=== PATIENT | male | born 1960 | race Hispanic/Latino ===

== ENCOUNTER 2018-02-24 14:40 | Inpatient (IN) | payer MEDICARE ==
[~2018-02-24] VITALS: Ht 170.2 cm; Wt 66.5 kg
[2018-02-24 16:04] LABS: BASOPHILS % (AUTO) 0.7 % (0.0-5.0); EOSINOPHILS % (AUTO) 0.8 % (0.0-8.0); HEMATOCRIT 37.1 % (42-54); LYMPHOCYTES % (AUTO) 16.1 % (21.0-51.0); MEAN CORPUSCULAR HEMOGLOBIN 33.7 pg (27.0-33.0); MEAN CORPUSCULAR HGB CONC 33.6 g/dL (32.0-36.0); MEAN CORPUSCULAR VOLUME 100.3 fL (79-99); NEUTROPHILS % (AUTO) 68.4 % (40.0-77.0); NUCLEATED RED BLOOD CELLS 0.3 % (0.0-0.19); PLATELET COUNT (AUTO) 94 K/uL (130-400); RED BLOOD CELL COUNT(AUTO) 3.69 MIL/uL (4.50-6.20); RED CELL DISTRIBUTION WIDTH 13.1 % (11.0-15.5); WHITE BLOOD COUNT (AUTO) 5.2 K/uL (4.8-10.8)
[2018-02-24 16:16] LABS: CREATININE 1.4 mg/dL (0.5-1.5); POTASSIUM 3.8 mmol/L (3.5-5.1)
[2018-02-24 16:22] LABS: ALBUMIN 3.1 g/dL (3.5-5.0); BILIRUBIN,TOTAL 0.3 mg/dL (0.2-1.0); TOTAL PROTEIN, SERUM 7.6 g/dL (6.0-8.3)
[2018-02-24] MEDS ORDERED: AZITHROMYCIN 500MG+NS 250ML 250 ML IV ONE (17:05)
[2018-02-24] MEDS ORDERED: CEFTRIAXONE SODIUM 1 GM ONE (17:05)
[2018-02-24] MEDS ORDERED: OSELTAMIVIR PHOSPHATE 75 MG CAP ONE (17:06)
[2018-02-24] MEDS ORDERED: ALBUTEROL SULFATE 0.083% 2.5 MG/3 ML INH IH ONE (17:29)
[2018-02-24] MEDS: SODIUM CHLORIDE 0.9% 1000ML 1,000 ML IV SCH ×2 (18:07→19:25)
[2018-02-24] MEDS ORDERED: ACETAMINOPHEN 325 MG TAB PO PRN ×2 (18:15)
[2018-02-24] MEDS ORDERED: ONDANSETRON HCL 4 MG/2 ML VIAL IV PRN (18:15)
[2018-02-24] MEDS ORDERED: HYDRALAZINE HCL 20 MG/ML VIAL IV PRN (18:15)
[2018-02-24] MEDS ORDERED: LACTULOSE 20 GM/30 ML UDCUP PO PRN (18:15)
[2018-02-24 20:12] LABS: APPEARANCE,URINE Clear (CLEAR); BILIRUBIN,URINE Negative (NEGATIVE); COLOR,URINE Yellow (YELLOW); GLUCOSE, URINE (UA) Negative (NEGATIVE); KETONES,URINE Negative (NEGATIVE); LEUKOCYTE ESTERASE ,URINE Negative (NEGATIVE); NITRATE,URINE Negative (NEGATIVE); OCCULT BLOOD,URINE Negative (NEGATIVE); PROTEIN,URINE Negative (NEGATIVE); UROBILINOGEN,URINE 0.2 mg/dL (0.2-1.0)
[2018-02-24] MEDS: OSELTAMIVIR PHOSPHATE 75 MG CAP PO SCH (21:00)
[2018-02-24] MEDS ORDERED: ALBUTEROL SULFATE 0.083% 2.5 MG/3 ML INH IH SCH (22:00)
[2018-02-24] MEDS ORDERED: GUAIFENESIN-DM 200/20 MG 10 ML ONE (22:18)
[2018-02-24] MEDS: IPRATROPIUM/ALBUTEROL SULFATE 3 ML SOLUTION IH SCH (23:53)
[2018-02-25] VITALS: BP 162/85
[2018-02-25] MEDS ORDERED: OXYC-43 PO (00:25)
[2018-02-25] MEDS ORDERED: PREG100C PO (00:25)
[2018-02-25] MEDS: FAMOTIDINE/PF 20 MG/2 ML VIAL IV SCH ×2 (00:26→09:52)
[2018-02-25] MEDS: ACETAMINOPHEN 325 MG TAB PO PRN ×2 (00:55→06:50)
[2018-02-25] MEDS ORDERED: METO-408 PO (01:18)
[2018-02-25] MEDS ORDERED: ALPR0.5T8 PO (01:18)
[2018-02-25] MEDS ORDERED: ANDROGEL PUMP (01:18)
[2018-02-25] MEDS ORDERED: MUPI15C TP (01:18)
[2018-02-25] MEDS ORDERED: AMPH30CA PO (01:18)
[2018-02-25] MEDS ORDERED: [UNRECOGNIZED DRUG - CODE] TP (01:18)
[2018-02-25] MEDS ORDERED: TRAZ-185 PO (01:18)
[2018-02-25] MEDS ORDERED: DULO30CA2 PO (01:18)
[2018-02-25] MEDS ORDERED: FURO40TA5 PO (01:18)
[2018-02-25] MEDS ORDERED: ELVI1TAB3 PO (01:18)
--- NOTE | 2018-02-25 01:21 | NUR ---
FULL CODE Pt signed a DNr form in [place],he said he changed his mind and wants to be a full code.
--- NOTE | 2018-02-25 01:22 | NUR ---
HOME MEDS Pt did not bring home med except bottle of Lyrica and percocet. He sindhu a list of medication list from Md office.Medication entered on cpoe.
[2018-02-25 04:00] VITALS: BP 125/75
[2018-02-25] MEDS: SODIUM CHLORIDE 0.9% 1000ML 1,000 ML IV SCH ×2 (04:07→04:10)
[2018-02-25] MEDS: GUAIFENESIN-DM 200/20 MG 10 ML PO PRN ×4 (04:25→22:55)
--- NOTE | 2018-02-25 04:51 | NUR ---
SPUTUM/RESP PCR Sputum and resp PCr sample sent to lab.
[2018-02-25] MEDS: IPRATROPIUM/ALBUTEROL SULFATE 3 ML SOLUTION IH SCH ×3 (06:06→19:08)
[2018-02-25 07:30] VITALS: BP 112/73
[2018-02-25] MEDS ORDERED: PNEUMOCOCCAL VACCINE POLYVALENT 0.5 ML/VIAL [PPV] IM ONE ×2 (09:00)
--- NOTE | 2018-02-25 09:00 | NUR ---
PNEUMO. VACCINE TAKEN LESS THAN 5 YRS. AGO. NOT SURE ON FLU FOR TIS YEAR.
--- NOTE | 2018-02-25 09:00 | NUR ---
ANTI VIRAL MEDS. NOT AVAIL. PROVIDER TO BRING IN, ALL OTHER MEDICATIONS RECONCILED.
[2018-02-25] MEDS: OSELTAMIVIR PHOSPHATE 75 MG CAP PO SCH ×2 (09:52→20:50)
[2018-02-25] MEDS: ENOXAPARIN SODIUM 40 MG/0.4 ML SYRINGE SQ SCH (09:53)
[2018-02-25 11:00] VITALS: BP 147/97
--- NOTE | 2018-02-25 12:41 | NUR ---
DCP CM met with pt discussed dc plans. Pt is independent prior to admission, lives at home alone, sister Abigail Lorenzo lives close by. Denies any equipments/services. Pt feels safe to go back home, still drives, sister able to assist w/transportation and needs as necessary. Dc plan to home once stable. CM to cont to follow up. Addendum: 02/25/18 at 1243 by LOVELY MARIN LVN CM Amended: Links added.
[2018-02-25] MEDS: BENZONATATE 100 MG CAPSULE PO SCH ×2 (12:49→20:48)
[2018-02-25] MEDS: PERCOCET PO SCH ×2 (14:00→20:57)
[2018-02-25] MEDS: TRAZODONE HCL 50 MG TAB PO SCH ×2 (14:36→20:49)
[2018-02-25] MEDS: PREGABALIN 100 MG CAPSULE PO SCH ×2 (14:36→20:49)
[2018-02-25] MEDS: METHYLPREDNISOLONE SOD SUCC 40MG/ML 1ML IVP SCH (15:03)
[2018-02-25 16:00] VITALS: BP 125/76
--- NOTE | 2018-02-25 16:35 | NUR ---
Nutrition intervention: Nutrition notification as trigger. Pt admitted for CAP RLL/hypoxia. Pt reports poor po intake d/t decreased appetite d/t every thing he is going through emotionally and recently losing his partner in October. Pt reports a 9 lb unintentional weight loss in the past 3 months since partner past away. Pt's Nurse and RD have encouraged pt to take care of his own health first to get better and be able to handle current emotional situation. Recommendations: Continue current diet therapy. Provided nutrition supplement once daily for added caloric and protein intake. Addendum: 02/25/18 at [address] RD Amended: Links added.
--- NOTE | 2018-02-25 17:00 | NUR ---
DR. CAMPBELL IN TO SEE PT.
[2018-02-25] MEDS: CEFTRIAXONE SODIUM 1 GM IV SCH (17:08)
[2018-02-25] MEDS: AZITHROMYCIN 500MG+NS 250ML 250 ML IV SCH (17:09)
[2018-02-25] MEDS: ALPRAZOLAM 0.5 MG TABLET PO PRN ×2 (18:59→22:55)
[2018-02-25 20:00] VITALS: BP 155/93
[2018-02-25] MEDS: FAMOTIDINE 20MG TAB 20 MG TAB PO SCH (20:49)
[2018-02-25] MEDS: BENZOCAINE/MENTH/CETYLPYRD CL 1 EACH LOZENGE MM SCH (20:49)
[2018-02-25] MEDS: FUROSEMIDE 40 MG TABLET PO SCH (20:50)
[2018-02-25] MEDS: DULOXETINE HCL 30 MG CAP PO SCH (20:50)
[2018-02-26] VITALS: BP 158/78
[2018-02-26] MEDS: IPRATROPIUM/ALBUTEROL SULFATE 3 ML SOLUTION IH SCH ×5 (00:02→23:14)
[2018-02-26] MEDS: BENZONATATE 100 MG CAPSULE PO SCH ×3 (03:45→22:07)
[2018-02-26 04:00] VITALS: BP 130/78
[2018-02-26 05:42] LABS: HEMATOCRIT 38.3 % (42-54); MEAN CORPUSCULAR HEMOGLOBIN 33.4 pg (27.0-33.0); MEAN CORPUSCULAR HGB CONC 33.4 g/dL (32.0-36.0); MEAN CORPUSCULAR VOLUME 99.8 fL (79-99); NUCLEATED RED BLOOD CELLS 0.6 % (0.0-0.19); PLATELET COUNT (AUTO) 121 K/uL (130-400); RED BLOOD CELL COUNT(AUTO) 3.84 MIL/uL (4.50-6.20); RED CELL DISTRIBUTION WIDTH 13.1 % (11.0-15.5); WHITE BLOOD COUNT (AUTO) 2.9 K/uL (4.8-10.8)
[2018-02-26 05:50] LABS: ALBUMIN 2.9 g/dL (3.5-5.0); BILIRUBIN,TOTAL 0.2 mg/dL (0.2-1.0); CREATININE 1.1 mg/dL (0.5-1.5); POTASSIUM 3.8 mmol/L (3.5-5.1); TOTAL PROTEIN, SERUM 7.5 g/dL (6.0-8.3)
[2018-02-26 06:06] LABS: BAND NEUTROPHILS % (MANUAL) 4 % (0-2); LYMPHOCYTES % (MANUAL) 14 % (22-44); MAN.DIFF COMMENT-IMPRESSION MANUAL DIFFERENTIAL; MONOCYTES % (MANUAL) 14 % (2-9); REACTIVE LYMPHOCYTES 2 % (0-0); SEGMENTED NEUTROPHILS % 66 % (40-70)
[2018-02-26 08:00] VITALS: BP 150/83
--- NOTE | 2018-02-26 08:00 | NUR ---
AM SHIFT ASSESSMENT. SITTING UP IN BED, STATES FEELING BETTER THIS AM AND ACTUALLY LOOKS BETTER
[2018-02-26] MEDS: ADDERALL 30 MG PO SCH (09:00)
[2018-02-26] MEDS: GENVOYA PO SCH (09:00)
[2018-02-26] MEDS: FUROSEMIDE 40 MG TABLET PO SCH ×2 (10:09→22:07)
[2018-02-26] MEDS: OSELTAMIVIR PHOSPHATE 75 MG CAP PO SCH ×2 (10:09→22:07)
[2018-02-26] MEDS: FAMOTIDINE 20MG TAB 20 MG TAB PO SCH ×2 (10:09→22:07)
[2018-02-26] MEDS: DULOXETINE HCL 30 MG CAP PO SCH ×2 (10:09→22:07)
[2018-02-26] MEDS: ENOXAPARIN SODIUM 40 MG/0.4 ML SYRINGE SQ SCH (10:10)
[2018-02-26] MEDS: GUAIFENESIN-DM 200/20 MG 10 ML PO PRN ×2 (10:41→15:13)
[2018-02-26] MEDS: ALPRAZOLAM 0.5 MG TABLET PO PRN ×2 (10:41→22:15)
[2018-02-26] MEDS: BENZOCAINE/MENTH/CETYLPYRD CL 1 EACH LOZENGE MM SCH ×2 (10:41→22:06)
[2018-02-26] MEDS: PREGABALIN 100 MG CAPSULE PO SCH ×3 (10:43→22:07)
[2018-02-26] MEDS ORDERED: OXYCODONE/ACETAMIN 5/325MG TAB PO PRN (10:45)
--- NOTE | 2018-02-26 10:45 | NUR ---
FRANKLIN IN TO SEE PT. SOME MED. ADJUSTMENTS MADE.
[2018-02-26 12:00] VITALS: BP 111/82
--- NOTE | 2018-02-26 12:30 | NUR ---
DR. STEPHENSON IN TO SEE PT. ORDERED DIFLUCAN.
[2018-02-26] MEDS: FLUCONAZOLE 100 MG TAB PO SCH (15:13)
[2018-02-26] MEDS: METHYLPREDNISOLONE SOD SUCC 40MG/ML 1ML IVP SCH (15:13)
[2018-02-26] MEDS: TRAZODONE HCL 50 MG TAB PO SCH ×3 (15:20→22:10)
[2018-02-26 16:00] VITALS: BP 118/79
--- NOTE | 2018-02-26 17:00 | NUR ---
APPETITE MUCH IMPROVED.EATING WELL AND ENJOYING FOOD.
[2018-02-26] MEDS: AZITHROMYCIN 500MG+NS 250ML 250 ML IV SCH (17:08)
[2018-02-26] MEDS: CEFTRIAXONE SODIUM 1 GM IV SCH (17:08)
--- NOTE | 2018-02-26 18:00 | NUR ---
RESTING EASY,FEELING BETTER AND LOOKING BETTER.
[2018-02-26 20:00] VITALS: BP 157/97
[2018-02-26] MEDS: PERCOCET PO SCH (21:00)
[2018-02-27] VITALS (7 sets, daily range): BP systolic 100–153; BP diastolic 66–91
[2018-02-27 04:24] LABS: MEAN CORPUSCULAR HEMOGLOBIN 34.9 pg (27.0-33.0); MEAN CORPUSCULAR HGB CONC 34.9 g/dL (32.0-36.0); MEAN CORPUSCULAR VOLUME 99.8 fL (79-99); NUCLEATED RED BLOOD CELLS 0.2 % (0.0-0.19); PLATELET COUNT (AUTO) 199 K/uL (130-400); RED BLOOD CELL COUNT(AUTO) 3.71 MIL/uL (4.50-6.20); RED CELL DISTRIBUTION WIDTH 12.6 % (11.0-15.5); WHITE BLOOD COUNT (AUTO) 3.9 K/uL (4.8-10.8)
[2018-02-27 04:55] LABS: ALBUMIN 2.9 g/dL (3.5-5.0); BILIRUBIN,TOTAL 0.2 mg/dL (0.2-1.0); POTASSIUM 3.9 mmol/L (3.5-5.1); TOTAL PROTEIN, SERUM 7.8 g/dL (6.0-8.3)
[2018-02-27] MEDS: BENZONATATE 100 MG CAPSULE PO SCH ×3 (05:03→20:46)
[2018-02-27] MEDS: IPRATROPIUM/ALBUTEROL SULFATE 3 ML SOLUTION IH SCH ×4 (06:12→23:03)
[2018-02-27] MEDS: PERCOCET PO SCH ×3 (09:00→21:00)
[2018-02-27] MEDS: GENVOYA PO SCH (09:00)
[2018-02-27] MEDS: ADDERALL 30 MG PO SCH (09:00)
--- NOTE | 2018-02-27 11:00 | NUR ---
[facility] + TO THE SPUTUM DR. SEEMA GARY.
[2018-02-27] MEDS: BENZOCAINE/MENTH/CETYLPYRD CL 1 EACH LOZENGE MM SCH ×2 (11:52→20:45)
[2018-02-27] MEDS: ALPRAZOLAM 0.5 MG TABLET PO PRN (11:52)
[2018-02-27] MEDS: DULOXETINE HCL 30 MG CAP PO SCH ×2 (11:52→20:45)
[2018-02-27] MEDS: TRAZODONE HCL 50 MG TAB PO SCH ×3 (11:53→20:47)
[2018-02-27] MEDS: FUROSEMIDE 40 MG TABLET PO SCH ×2 (11:53→20:45)
[2018-02-27] MEDS: OSELTAMIVIR PHOSPHATE 75 MG CAP PO SCH ×2 (11:53→20:45)
[2018-02-27] MEDS: FLUCONAZOLE 100 MG TAB PO SCH (11:54)
[2018-02-27] MEDS: FAMOTIDINE 20MG TAB 20 MG TAB PO SCH ×2 (11:54→20:45)
[2018-02-27] MEDS: PREGABALIN 100 MG CAPSULE PO SCH ×3 (11:54→20:46)
[2018-02-27] MEDS: ENOXAPARIN SODIUM 40 MG/0.4 ML SYRINGE SQ SCH (12:02)
--- NOTE | 2018-02-27 12:37 | NUR ---
CM Note: [facility] pending ins auth and acceptance CM met with pt discussed regarding MD recommendations for placement, pt will need therapy as well as antibiotics. Pt agreeable, KEI signed for [facility]. Faxed clinicals, order, and pasrr. Spoke to Nat odom/Piyush, received clinicals, will come eval pt. Pt pending ins auth and acceptance. Primary nurse aware. CM to cont to follow up.
[2018-02-27] MEDS ORDERED: VANCOMYCIN PROTOCOL PER PHARMACY IV SCH (15:30)
--- NOTE | 2018-02-27 16:00 | NUR ---
bolus of ns 500mls given iv. bp 101/48, hr 118. patient states felt very dizzy prior to bolus.
[2018-02-27] MEDS: METHYLPREDNISOLONE SOD SUCC 40MG/ML 1ML IVP SCH (17:37)
[2018-02-27] MEDS: HYDROCODONE/ACETAMINOPHEN 5/325 MG TAB PO PRN ×2 (17:38→23:38)
[2018-02-27] MEDS: VANCOMYCIN 1GM+NS 250ML 250 ML IV SCH (19:08)
[2018-02-27] MEDS ORDERED: SODIUM CHLORIDE 0.9% 500ML 500 ML IV SCH (20:15)
[2018-02-28 03:25] VITALS: BP 136/77
[2018-02-28] MEDS: BENZONATATE 100 MG CAPSULE PO SCH ×3 (04:28→20:28)
[2018-02-28 04:43] LABS: HEMATOCRIT 37.4 % (42-54); MEAN CORPUSCULAR HEMOGLOBIN 33.4 pg (27.0-33.0); MEAN CORPUSCULAR HGB CONC 33.6 g/dL (32.0-36.0); MEAN CORPUSCULAR VOLUME 99.5 fL (79-99); PLATELET COUNT (AUTO) 216 K/uL (130-400); RED BLOOD CELL COUNT(AUTO) 3.76 MIL/uL (4.50-6.20); RED CELL DISTRIBUTION WIDTH 13.2 % (11.0-15.5); WHITE BLOOD COUNT (AUTO) 5.2 K/uL (4.8-10.8)
[2018-02-28 04:57] LABS: ALBUMIN 2.9 g/dL (3.5-5.0); BILIRUBIN,TOTAL 0.2 mg/dL (0.2-1.0); CREATININE 1.1 mg/dL (0.5-1.5); POTASSIUM 3.8 mmol/L (3.5-5.1); TOTAL PROTEIN, SERUM 7.5 g/dL (6.0-8.3)
[2018-02-28] MEDS: IPRATROPIUM/ALBUTEROL SULFATE 3 ML SOLUTION IH SCH ×4 (06:22→23:09)
[2018-02-28 08:00] VITALS: BP 154/86
[2018-02-28] MEDS ORDERED: ACETAMINOPHEN-CODEINE 300/30MG TAB PO PRN (08:45)
[2018-02-28] MEDS: TRAZODONE HCL 50 MG TAB PO SCH ×3 (09:00→20:28)
[2018-02-28] MEDS: GENVOYA PO SCH (09:00)
[2018-02-28] MEDS: ADDERALL 30 MG PO SCH (09:00)
[2018-02-28] MEDS: PERCOCET PO SCH ×3 (09:00→21:00)
[2018-02-28] MEDS: VANCOMYCIN 1GM+NS 250ML 250 ML IV SCH ×2 (09:22→20:29)
[2018-02-28] MEDS: OSELTAMIVIR PHOSPHATE 75 MG CAP PO SCH ×2 (09:26→20:28)
[2018-02-28] MEDS: DULOXETINE HCL 30 MG CAP PO SCH ×2 (09:26→20:28)
[2018-02-28] MEDS: BENZOCAINE/MENTH/CETYLPYRD CL 1 EACH LOZENGE MM SCH ×2 (09:26→20:27)
[2018-02-28] MEDS: FUROSEMIDE 40 MG TABLET PO SCH ×2 (09:27→20:28)
[2018-02-28] MEDS: FAMOTIDINE 20MG TAB 20 MG TAB PO SCH ×2 (09:27→20:28)
[2018-02-28] MEDS: PREGABALIN 100 MG CAPSULE PO SCH ×2 (09:28→20:28)
[2018-02-28] MEDS: ENOXAPARIN SODIUM 40 MG/0.4 ML SYRINGE SQ SCH (09:28)
[2018-02-28] MEDS: FLUCONAZOLE 100 MG TAB PO SCH (11:55)
[2018-02-28 12:00] VITALS: BP 143/82
[2018-02-28 16:00] VITALS: BP 115/65
[2018-02-28] MEDS: KETOROLAC TROMETHAMINE 30MG/ML IV SCH (16:37)
[2018-02-28] MEDS: METHYLPREDNISOLONE SOD SUCC 40MG/ML 1ML IVP SCH (16:37)
[2018-02-28 20:00] VITALS: BP 156/94
[2018-02-28] MEDS: GABAPENTIN 100 MG CAPSULE PO SCH (20:28)
[2018-03-01] VITALS (7 sets, daily range): BP systolic 137–160; BP diastolic 79–93
[2018-03-01] MEDS: BENZONATATE 100 MG CAPSULE PO SCH ×3 (04:42→20:30)
[2018-03-01 06:24] LABS: BASOPHILS % (AUTO) 0.1 % (0.0-5.0); HEMATOCRIT 36.2 % (42-54); LYMPHOCYTES % (AUTO) 7.9 % (21.0-51.0); MEAN CORPUSCULAR HEMOGLOBIN 33.9 pg (27.0-33.0); MEAN CORPUSCULAR HGB CONC 33.9 g/dL (32.0-36.0); MEAN CORPUSCULAR VOLUME 100.1 fL (79-99); MONOCYTES % (AUTO) 7.7 % (3.0-13.0); NEUTROPHILS % (AUTO) 84.3 % (40.0-77.0); NUCLEATED RED BLOOD CELLS 0.1 % (0.0-0.19); PLATELET COUNT (AUTO) 294 K/uL (130-400); RED BLOOD CELL COUNT(AUTO) 3.62 MIL/uL (4.50-6.20); WHITE BLOOD COUNT (AUTO) 9.2 K/uL (4.8-10.8)
[2018-03-01 06:35] LABS: CREATININE 1.1 mg/dL (0.5-1.5); POTASSIUM 3.8 mmol/L (3.5-5.1)
[2018-03-01] MEDS: IPRATROPIUM/ALBUTEROL SULFATE 3 ML SOLUTION IH SCH ×3 (06:42→18:10)
[2018-03-01] MEDS: PERCOCET PO SCH ×3 (09:00→21:00)
[2018-03-01] MEDS: ADDERALL 30 MG PO SCH (09:00)
[2018-03-01] MEDS: GENVOYA PO SCH (09:00)
[2018-03-01] MEDS: TRAZODONE HCL 50 MG TAB PO SCH ×3 (09:00→20:34)
[2018-03-01] MEDS: ENOXAPARIN SODIUM 40 MG/0.4 ML SYRINGE SQ SCH (09:04)
[2018-03-01] MEDS: OSELTAMIVIR PHOSPHATE 75 MG CAP PO SCH (09:06)
[2018-03-01] MEDS: DULOXETINE HCL 30 MG CAP PO SCH ×2 (09:07→20:30)
[2018-03-01] MEDS: FAMOTIDINE 20MG TAB 20 MG TAB PO SCH ×2 (09:07→20:30)
[2018-03-01] MEDS: GABAPENTIN 100 MG CAPSULE PO SCH ×2 (09:07→20:29)
[2018-03-01] MEDS: PREGABALIN 100 MG CAPSULE PO SCH ×3 (09:07→20:34)
[2018-03-01] MEDS: FUROSEMIDE 40 MG TABLET PO SCH ×2 (09:08→20:30)
[2018-03-01] MEDS: BENZOCAINE/MENTH/CETYLPYRD CL 1 EACH LOZENGE MM SCH ×2 (09:08→20:29)
[2018-03-01] MEDS: VANCOMYCIN 1GM+NS 250ML 250 ML IV SCH ×2 (09:19→20:29)
[2018-03-01] MEDS: KETOROLAC TROMETHAMINE 30MG/ML IV SCH (13:15)
[2018-03-01] MEDS: FLUCONAZOLE 100 MG TAB PO SCH (13:24)
[2018-03-01] MEDS: METHYLPREDNISOLONE SOD SUCC 40MG/ML 1ML IVP SCH (14:14)
[2018-03-01] MEDS: HYDROCODONE/ACETAMINOPHEN 5/325 MG TAB PO PRN (20:29)
[2018-03-02] MEDS: IPRATROPIUM/ALBUTEROL SULFATE 3 ML SOLUTION IH SCH ×5 (00:16→23:29)
[2018-03-02 04:00] VITALS: BP 111/72
[2018-03-02] MEDS: BENZONATATE 100 MG CAPSULE PO SCH ×3 (04:53→21:32)
[2018-03-02 06:56] LABS: HEMATOCRIT 40.5 % (42-54); MEAN CORPUSCULAR HEMOGLOBIN 32.9 pg (27.0-33.0); MEAN CORPUSCULAR HGB CONC 33.2 g/dL (32.0-36.0); MEAN CORPUSCULAR VOLUME 98.9 fL (79-99); PLATELET COUNT (AUTO) 373 K/uL (130-400); WHITE BLOOD COUNT (AUTO) 13.5 K/uL (4.8-10.8)
[2018-03-02 08:00] VITALS: BP 133/79
[2018-03-02] MEDS: ADDERALL 30 MG PO SCH (09:00)
[2018-03-02] MEDS: PERCOCET PO SCH ×3 (09:00→21:00)
[2018-03-02] MEDS: VANCOMYCIN 1GM+NS 250ML 250 ML IV SCH ×2 (09:00→23:04)
[2018-03-02] MEDS: TRAZODONE HCL 50 MG TAB PO SCH ×3 (09:00→21:32)
[2018-03-02] MEDS: GENVOYA PO SCH (09:00)
[2018-03-02] MEDS: BENZOCAINE/MENTH/CETYLPYRD CL 1 EACH LOZENGE MM SCH ×2 (09:01→21:32)
[2018-03-02] MEDS: ENOXAPARIN SODIUM 40 MG/0.4 ML SYRINGE SQ SCH (09:04)
[2018-03-02] MEDS: DULOXETINE HCL 30 MG CAP PO SCH ×2 (09:04→21:32)
[2018-03-02] MEDS: PREGABALIN 100 MG CAPSULE PO SCH ×2 (09:04→15:04)
[2018-03-02] MEDS: FAMOTIDINE 20MG TAB 20 MG TAB PO SCH ×2 (09:05→21:32)
[2018-03-02] MEDS: GABAPENTIN 100 MG CAPSULE PO SCH (09:05)
[2018-03-02] MEDS: FUROSEMIDE 40 MG TABLET PO SCH ×2 (09:05→21:32)
[2018-03-02 09:59] LABS: CREATININE 1.1 mg/dL (0.5-1.5); POTASSIUM 4.1 mmol/L (3.5-5.1)
[2018-03-02 11:00] VITALS: BP 152/95
[2018-03-02] MEDS: ACETAMINOPHEN 325 MG TAB PO PRN (11:25)
[2018-03-02] MEDS: FLUCONAZOLE 100 MG TAB PO SCH (12:38)
[2018-03-02] MEDS: METHYLPREDNISOLONE SOD SUCC 40MG/ML 1ML IVP SCH (15:04)
[2018-03-02 16:00] VITALS: BP 128/78
[2018-03-02 16:06] LABS: INR 1.08 (0.85-1.15); PARTIAL THROMBOPLASTIN TIME 28.1 SEC (26.3-35.5); PROTHROMBIN TIME 11.3 SEC (9.6-11.6)
--- NOTE | 2018-03-02 17:03 | NUR ---
RD Follow-UP Patient with Good PO at 100% and no report of GI distress with current diet as per patient. Patient LBM 03/02/18. Patient monitored labs: BUn 30, ALb 2.9. Patient with request for nutrition information upon visit. RD to follow-up. Please notify RD as nutritional concerns arise. Thank you. Addendum: 03/02/18 at [address] RD Amended: Links added.
[2018-03-02] MEDS: HYDROCODONE/ACETAMINOPHEN 5/325 MG TAB PO PRN (17:31)
[2018-03-02 20:00] VITALS: BP 164/98
[2018-03-02] MEDS ORDERED: IBUPROFEN 800 MG TAB PO PRN (20:30)
[2018-03-03] VITALS: BP 126/80
[2018-03-03 04:00] VITALS: BP 132/81
[2018-03-03 04:56] LABS: HEMATOCRIT 39.1 % (42-54); MEAN CORPUSCULAR HEMOGLOBIN 34.4 pg (27.0-33.0); MEAN CORPUSCULAR HGB CONC 34.5 g/dL (32.0-36.0); MEAN CORPUSCULAR VOLUME 99.6 fL (79-99); PLATELET COUNT (AUTO) 346 K/uL (130-400); RED BLOOD CELL COUNT(AUTO) 3.93 MIL/uL (4.50-6.20); RED CELL DISTRIBUTION WIDTH 12.9 % (11.0-15.5); WHITE BLOOD COUNT (AUTO) 12.6 K/uL (4.8-10.8)
[2018-03-03 05:14] LABS: CREATININE 1.1 mg/dL (0.5-1.5); MAGNESIUM 2.7 mg/dL (1.80-2.40); PHOSPHORUS 3.6 mg/dL (2.5-4.9); POTASSIUM 4.6 mmol/L (3.5-5.1)
[2018-03-03] MEDS: IPRATROPIUM/ALBUTEROL SULFATE 3 ML SOLUTION IH SCH ×4 (06:52→23:18)
[2018-03-03 07:00] VITALS: BP 119/77
[2018-03-03] MEDS: BENZONATATE 100 MG CAPSULE PO SCH ×3 (07:01→21:11)
[2018-03-03] MEDS: ADDERALL 30 MG PO SCH (09:00)
[2018-03-03] MEDS: TRAZODONE HCL 50 MG TAB PO SCH ×3 (09:00→21:11)
[2018-03-03] MEDS: ENOXAPARIN SODIUM 40 MG/0.4 ML SYRINGE SQ SCH (09:00)
[2018-03-03] MEDS: PERCOCET PO SCH ×3 (09:00→21:00)
[2018-03-03] MEDS: BENZOCAINE/MENTH/CETYLPYRD CL 1 EACH LOZENGE MM SCH ×2 (09:00→21:10)
[2018-03-03] MEDS: GENVOYA PO SCH (09:00)
[2018-03-03 11:00] VITALS: BP 105/64
[2018-03-03] MEDS: VANCOMYCIN 1GM+NS 250ML 250 ML IV SCH ×2 (11:03→21:10)
[2018-03-03] MEDS: FAMOTIDINE 20MG TAB 20 MG TAB PO SCH ×2 (11:03→21:11)
[2018-03-03] MEDS: FUROSEMIDE 40 MG TABLET PO SCH ×2 (11:03→21:11)
[2018-03-03] MEDS: PREDNISONE 20 MG TABLET PO SCH (11:03)
[2018-03-03] MEDS: DULOXETINE HCL 30 MG CAP PO SCH ×2 (11:03→21:10)
[2018-03-03] MEDS: HYDROCODONE/ACETAMINOPHEN 5/325 MG TAB PO PRN (15:03)
--- NOTE | 2018-03-03 15:05 | NUR ---
CM Note: [facility] ins auth pending to make bed for patient. Spoke to Nat odom/Piyush, pt has ins auth, pending to make bed for patient, will call back as soon as isolation bed available today/tomorrow. Primary nurse aware. CM to cont to follow up.
[2018-03-03] MEDS ORDERED: FLUC100T8 PO (15:39)
[2018-03-03] MEDS ORDERED: IBUP-2077 PO (15:39)
[2018-03-03 16:00] VITALS: BP 131/72
[2018-03-03] MEDS: FLUCONAZOLE 100 MG TAB PO SCH (18:46)
[2018-03-03 20:00] VITALS: BP 104/76
[2018-03-04] VITALS: BP 100/67
[2018-03-04 04:00] VITALS: BP 106/79
[2018-03-04] MEDS: BENZONATATE 100 MG CAPSULE PO SCH ×2 (04:57→12:19)
[2018-03-04] MEDS: IPRATROPIUM/ALBUTEROL SULFATE 3 ML SOLUTION IH SCH ×2 (06:11→10:55)
[2018-03-04 08:00] VITALS: BP 110/84
[2018-03-04] MEDS: TRAZODONE HCL 50 MG TAB PO SCH ×2 (08:37→14:27)
[2018-03-04] MEDS: FAMOTIDINE 20MG TAB 20 MG TAB PO SCH (08:37)
[2018-03-04] MEDS: BENZOCAINE/MENTH/CETYLPYRD CL 1 EACH LOZENGE MM SCH (08:37)
[2018-03-04] MEDS: PREDNISONE 20 MG TABLET PO SCH (08:37)
[2018-03-04] MEDS: FUROSEMIDE 40 MG TABLET PO SCH (08:37)
[2018-03-04] MEDS: VANCOMYCIN 1GM+NS 250ML 250 ML IV SCH (08:38)
[2018-03-04] MEDS: DULOXETINE HCL 30 MG CAP PO SCH (08:38)
[2018-03-04] MEDS: ENOXAPARIN SODIUM 40 MG/0.4 ML SYRINGE SQ SCH (08:39)
[2018-03-04] MEDS: GENVOYA PO SCH (08:42)
[2018-03-04] MEDS: ADDERALL 30 MG PO SCH (08:42)
[2018-03-04] MEDS: PERCOCET PO SCH (08:43)
--- NOTE | 2018-03-04 10:00 | NUR ---
CM Note: [facility] acceptance, bed available Spoke to Buster odom/Piyush, pt has acceptance, bed available after 2pm today. Primary nurse aware to give report after 2pm. CM to cont to follow up.
[2018-03-04 12:00] VITALS: BP 114/78
[2018-03-04] MEDS: FLUCONAZOLE 100 MG TAB PO SCH (12:19)
== END 2018-03-04 16:10 | DRG 871 ==
LOC: EDH 14:40 → EDHIP 18:07 → 3AH 23:01
PROVIDERS: ADMIT Internal Medicine; ATTEND Internal Medicine
PROC: 3E0234Z Introduction of Serum, Toxoid and Vaccine into Muscle, Percutaneous Approach (ICD-10-PCS; principal; 2018-02-25)
PROC: 3E02340 Introduction of Influenza Vaccine into Muscle, Percutaneous Approach (ICD-10-PCS; 2018-02-25)
PROC: 02HV33Z Insertion of Infusion Device into Superior Vena Cava, Percutaneous Approach (ICD-10-PCS; 2018-03-03)
DX: A41.9 Sepsis, unspecified organism (principal); J18.1 Lobar pneumonia, unspecified organism; J09.X1 Influenza due to identified novel influenza A virus with pneumonia; J15.212 Pneumonia due to Methicillin resistant Staphylococcus aureus; F32.9 Major depressive disorder, single episode, unspecified; D69.6 Thrombocytopenia, unspecified; E78.5 Hyperlipidemia, unspecified; F17.200 Nicotine dependence, unspecified, uncomplicated; I10 Essential (primary) hypertension; Z60.2 Problems related to living alone; Z79.899 Other long term (current) drug therapy; Z23 Encounter for immunization
CPT/HCPCS: 36415; 71045; 80048; 80053; 80202; 81003; 83735; 84100; 85025; 85027; 85610; 85730; 87040; 87071; 87077; 87186; 87205; 87486; 87581; 87633; 87798; 87804; 93005; 94640; 94664; C1894; G0378; J0456; J0696; J1650; J1885; J2920; J3370; J3490